=== PATIENT | female | born 1995 | race Caucasian/White ===

== ENCOUNTER 2018-08-24 12:52 | Emergency (ER) | payer OTHER ==
[2018-08-24] MEDS ORDERED: ONDANSETRON 4 MG/2 ML VIAL ONE (14:56)
[2018-08-24] MEDS ORDERED: MORPHINE 4 MG/ML SYR ONE (14:56)
[2018-08-24] MEDS ORDERED: NA CHLORIDE 0.9% 1,000 ML ONE (14:56)
[2018-08-24 16:20] LABS: Absolute Lymphocytes (CBC) 0.7 K/uL (0.7-4.9); Absolute Monocytes 0.2 K/uL (0.1-1.3); Absolute Neutrophil 2.9 K/uL (1.8-8.0); Basophils % 0.3 % (0-1.3); Eosinophils % 0.3 % (0-4.4); Hematocrit 42.2 % (36.0-45.0); Lymphocytes % 17.4 % (15.3-44.8); Monocytes % 5.8 % (3.3-12.3)
[2018-08-24 16:38] LABS: Bilirubin Direct 0.1 mg/dL (0-0.2); Bilirubin Total 0.5 mg/dL (0.2-1.0); Potassium 3.7 mmol/L (3.5-5.1); Protein, Total 7.3 g/dL (6.4-8.2)
[2018-08-24] MEDS ORDERED: DICYCLOMINE HCL 10 MG CAP ONE (16:42)
[2018-08-24 17:07] LABS: Urine Blood TRACE (NEG); Urine Glucose NEGATIVE (NEG); Urine Protein TRACE (NEG)
--- NOTE | 2018-08-24 17:38 | RAD REPORT ---
EXAM DESCRIPTION: CT - Abdomen Pelvis W Contrast - 08/24/2018 5:20 pm CLINICAL HISTORY: Abdominal pain, right lower quadrant pain COMPARISON: None. TECHNIQUE: Biphasic, helical CT imaging of the abdomen and pelvis was performed following 100 ml non -ionic IV contrast. No oral contrast administered. All CT scans are performed using dose optimization technique as appropriate and may include automated exposure control or mA/KV adjustment according to patient size. FINDINGS: No suspicious findings in the lung bases. The liver, spleen, and pancreas show no suspicious findings. Gallbladder and biliary tree are also wi thout suspicious finding. Symmetric renal function is seen with no hydronephrosis or suspicious renal mass. No pyelonephritis o r acute parenchymal process. No bladder abnormalities. No adrenal abnormalities. No gastric dilatation or gastric wall thickening. No dilated small bowel loops. There are several flu id filled nondilated small bowel loops in the pelvis. Morales are mildly prominent. The appendix is nor mal in diameter. The appendix is partially retrocecal and positioned closely to the posterior wall of the cecum. Patient has small mesenteric lymph nodes in the right lower quadrant and a few central me senteric lymph nodes. No colon dilatation or wall thickening. No acute colon process. Uterus and ovar ies show no suspicious findings. No free air, free fluid or inflammatory stranding. No hernia, mass or bulky lymphadenopathy. No suspicious bony findings. IMPRESSION: No appendicitis findings. Patient has findings consistent with a mild enteritis or mesen teric adenitis.
--- NOTE | 2018-08-24 17:54 | ER ---
Nurse's Notes [facility] Name: Sveta Wyatt Age: 22 yrs Sex: Female : 1995 Arrival Date: 08/24/2018 Time: 12:55 Bed 27 Private MD: Diagnosis: Vomiting;Diarrhea, unspecified;Unspecified abdominal pain Presentation: 08/24 13:23 Presenting complaint: Presenting complaint: Patient states: Sent from urgent care for sg rule out appendicitis, reports having RLQ abd pain for 2 days now, with nausea, denies vomiting diarrhea fever at this time, reports pain is better while laying down, worsened with sitting up and ambulating, pt mother reports family history of gall bladder problems, but no other GI history reported, pt denies Vaginal discharge, no urinary symptoms reported. 13:24 Transition of care: patient was not received from another setting of care. Onset of sg symptoms was August 24, 2018. Risk Assessment: Do you want to hurt yourself or someone else? Patient reports no desire to harm self or others. Initial Sepsis Screen: Does the patient meet any 2 criteria? No. Patient's initial sepsis screen is negative. Does the patient have a suspected source of infection? No. Patient's initial sepsis screen is negative. Care prior to arrival: None. 13:24 Method Of Arrival: Ambulatory sg 13:24 Acuity: ROGELIO 3 sg Triage Assessment: 13:26 General: Appears uncomfortable, ill, well groomed, well developed, well nourished, sg Behavior is calm, cooperative, appropriate for age. Pain: Complains of pain in right lower quadrant Quality of pain is described as aching, sharp. EENT: Oral mucosa is moist. GI: Abdomen is flat, non-distended, Abd is soft X 4 quads Abdomen is tender to palpation in right lower quadrant. Derm: Skin is pale. RN CHEMICAL DEPENDENCY: 13:22 LMP N/A - Depo-provera sg Historical: - Allergies: 13:22 Amoxicillin; sg - Home Meds: 13:22 None [Active]; sg - PMHx: 13:22 None; sg - PSHx: 13:22 None; sg - Immunization history:: Adult Immunizations up to date. - Social history:: Smoking status: Patient/guardian denies using tobacco. - Ebola Screening: : Patient negative for fever greater than or equal to 101.5 degrees Fahrenheit, and additional compatible Ebola Virus Disease symptoms Patient denies exposure to infectious person Patient denies travel to an Ebola-affected area in the 21 days before illness onset No symptoms or risks identified at this time. Screenin:18 Abuse screen: Denies threats or abuse. Denies injuries from another. Nutritional mg2 screening: No deficits noted. Tuberculosis screening: No symptoms or risk factors identified. Fall Risk IV access (20 points). Assessment: 15:17 General: Appears in no apparent distress. comfortable, Behavior is calm, cooperative. mg2 Pain: Complains of pain in abdomen Pain does not radiate. Pain currently is 8 out of 10 on a pain scale. Quality of pain is described as aching, Pain began gradually, 2-3 days ago. Is intermittent. Neuro: Level of Consciousness is awake, alert, obeys commands, Oriented to person, place, time, situation. Cardiovascular: Capillary refill < 3 seconds Patient's skin is warm and dry. Respiratory: Airway is patent Respiratory effort is even, unlabored, Respiratory pattern is regular, symmetrical. GI: Bowel sounds present X 4 quads. Reports diarrhea, nausea, vomiting. : No signs and/or symptoms were reported regarding the genitourinary system. EENT: No signs and/or symptoms were reported regarding the EENT system. Derm: Skin is intact, is healthy with good turgor, Skin is pink, warm \T\ dry. normal. Musculoskeletal: Circulation, motion, and sensation intact. Capillary refill < 3 seconds. 18:03 Reassessment: Patient states feeling better. mg2 Vital Signs: 13:22 BP 117 / 84; Pulse 98; Resp 17; Temp 98.0; Pulse Ox 100% on R/A; Weight 91.63 kg; sg Height 6 ft. (182.88 cm); Pain 4/10; 15:19 Pulse 82; Resp 18; Pulse Ox 99% on R/A; Pain 8/10; mg2 16:36 BP 120 / 78; Pulse 84; Resp 18; Pulse Ox 99% on R/A; mg2 17:44 BP 132 / 83; Pulse 80; Resp 18; Pulse Ox 100% on R/A; Pain 5/10; mg2 13:22 Body Mass Index 27.40 (91.63 kg, 182.88 cm) ED Course: 12:55 Patient arrived in ED. as 13:22 Arm band placed on. sg 13:26 Triage completed. sg 14:29 Leon Au PA is PHCP. m 14:29 Edilberto Perez MD is Attending Physician. jmm 14:42 Radiology exam delayed due to lab results not completed at this time. test jg6 not completed at this time. 14:48 Rodger Farfan, RN is Primary Nurse. mg2 15:18 No provider procedures requiring assistance completed. Inserted saline lock: 22 gauge mg2 in left wrist, using aseptic technique. 15:19 Patient has correct armband on for positive identification. Pulse ox on. NIBP on. mg2 15:30 Radiology exam delayed due to lab results not completed at this time. (BUN/Creatinine) jg6 test not completed at this time. 16:10 Radiology exam delayed due to lab results not completed at this time. (BUN/Creatinine). jg6 17:[address] via wheelchair. nj 17:08 CT Abd/Pelvis - W/Contrast In Process Unspecified. EDMS 18:03 IV discontinued, intact, bleeding controlled, No redness/swelling at site. Pressure mg2 dressing applied. Administered Medications: 15:08 Drug: NS 0.9% 1000 ml Route: IV; Rate: 1 bolus; Site: left hand; ca1 18:03 Follow up: Response: No adverse reaction; IV Status: Completed infusion mg2 15:08 Drug: morphine 2 mg Route: IVP; Site: left hand; ca1 18:03 Follow up: Response: No adverse reaction; Marked relief of symptoms mg2 15:10 Drug: Zofran 4 mg Route: IVP; Site: left hand; ca1 18:03 Follow up: Response: No adverse reaction; Marked relief of symptoms mg2 16:36 Drug: Bentyl 20 mg Route: PO; mg2 17:43 Follow up: Response: No adverse reaction; Marked relief of symptoms mg2 17:54 Drug: morphine 2 mg Route: IVP; Site: left wrist; mg2 18:02 Follow up: Response: No adverse reaction; Medication administered at discharge. mg2 Outcome: 17:54 Discharge ordered by . jmm 18:04 Discharged to home ambulatory, with family. mg2 18:04 Condition: stable 18:04 Discharge instructions given to patient, family, Instructed on discharge instructions, follow up and referral plans. medication usage, Demonstrated understanding of instructions, follow-up care, medications, Prescriptions given X 2. 18:08 Patient left the ED. mg2 Signatures: Dispatcher [employer] EDMarcello Ledesma RN RN Leon Awan PA PA jmm Martinez, Amelia as Jordan, Nathan nj Gardose, Michele, RN RN mg2 Aarti Dumont6 Dona Hassan RN RN ca1 Corrections: (The following items were deleted from the chart) 13:26 13:23 Presenting complaint: jermaine dean
--- NOTE | 2018-08-24 17:55 | EDPHYS ---
Physician Documentation [facility] Name: Sveta Wyatt Age: 22 yrs Sex: Female : 1995 Arrival Date: 08/24/2018 Time: 12:55 Bed 27 Private MD: ED Physician Edilberto Perez HPI: 08/24 14:39 This 22 yrs old Female presents to ER via Ambulatory with complaints of jmm Abdominal Pain, Vomiting/Diarrhea. 14:39 The patient presents with abdominal pain. Onset: The symptoms/episode began/occurred jmm gradually, 3 day(s) ago. The symptoms do not radiate. Associated signs and symptoms: Pertinent positives: nausea and vomiting, diarrhea. The symptoms are described as achy. This is a 22 year old female with no chronic medical conditions that presents to the ED with complaints of abdominal pain, vomiting, diarrhea beginning 3 days ago. Sent from urgent care due to concerns for appendicitis. . 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 - Social history:: Smoking status: Patient/guardian denies using tobacco. - Ebola Screening: : Patient negative for fever greater than or equal to 101.5 degrees Fahrenheit, and additional compatible Ebola Virus Disease symptoms Patient denies exposure to infectious person Patient denies travel to an Ebola-affected area in the 21 days before illness onset No symptoms or risks identified at this time. ROS: 14:39 Constitutional: Negative for fever, chills, and weight loss, Cardiovascular: Negative jmm for chest pain, palpitations, and edema, Respiratory: Negative for shortness of breath, cough, wheezing, and pleuritic chest pain. 14:39 Abdomen/GI: Positive for abdominal pain, nausea and vomiting, diarrhea. 14:39 All other systems are negative. Exam: 14:39 Constitutional: This is a well developed, well nourished patient who is awake, alert, jmm and in no acute distress. Head/Face: atraumatic. Eyes: EOMI, no conjunctival erythema appreciated ENT: Moist Mucus Membranes Neck: Trachea midline, Supple Chest/axilla: Normal chest wall appearance and motion. Cardiovascular: Regular rate and rhythm. No edema appreciated Respiratory: Normal respirations, no respiratory distress appreciated 14:39 Back: Normal ROM Skin: General appearance color normal MS/ Extremity: Moves all extremities, no obvious deformities appreciated, no edema noted to the lower extremities Neuro: Awake and alert, normal gait Psych: Behavior is normal, Mood is normal, Patient is cooperative and pleasant 14:39 Abdomen/GI: Inspection: abdomen appears normal, Bowel sounds: normal, Palpation: soft, mild abdominal tenderness, in the right lower quadrant and left lower quadrant. Vital Signs: 13:22 BP 117 / 84; Pulse 98; Resp 17; Temp 98.0; Pulse Ox 100% on R/A; Weight 91.63 kg; sg Height 6 ft. (182.88 cm); Pain 4/10; 15:19 Pulse 82; Resp 18; Pulse Ox 99% on R/A; Pain 8/10; mg2 16:36 BP 120 / 78; Pulse 84; Resp 18; Pulse Ox 99% on R/A; mg2 17:44 BP 132 / 83; Pulse 80; Resp 18; Pulse Ox 100% on R/A; Pain 5/10; mg2 13:22 Body Mass Index 27.40 (91.63 kg, 182.88 cm) sg MDM: 14:39 Patient medically screened. [facility] 17:52 Data reviewed: vital signs, nurses notes. Counseling: I had a detailed discussion with chen the patient and/or guardian regarding: the historical points, exam findings, and any diagnostic results supporting the discharge/admit diagnosis, lab results, radiology results, the need for outpatient follow up, to return to the emergency department if symptoms worsen or persist or if there are any questions or concerns that arise at home. ED course: CT negative. I discussed lab and ct results with patient and mother. Patient given early appendicitis return precautions. Patient understood and agrees with the plan of care. . 08/24 14:40 Order name: Basic Metabolic Panel; Complete Time: 16:52 [facility] 08/24 14:40 Order name: CBC with Diff; Complete Time: 16:24 [facility] 08/24 14:40 Order name: Creatinine for Radiology; Complete Time: 16:52 [facility] 08/24 14:40 Order name: Hepatic Function; Complete Time: 16:52 [facility] 08/24 14:40 Order name: Lipase; Complete Time: 16:52 [facility] 08/24 14:40 Order name: Test, Serum; Complete Time: 16:52 [facility] 08/24 14:40 Order name: CT Abd/Pelvis - W/Contrast; Complete Time: 17:48 [facility] 08/24 16:35 Order name: Urine Dipstick--Ancillary (enter results); Complete Time: 17:18 08/24 16:35 Order name: Urine --Ancillary (enter results); Complete Time: 17:18 08/24 14:40 Order name: IV Saline Lock; Complete Time: 15:15 [facility] 08/24 14:40 Order name: Labs collected and sent; Complete Time: 16:34 [facility] 08/24 14:40 Order name: Urine Dipstick-Ancillary (obtain specimen); Complete Time: 16:34 [facility] Administered Medications: 15:08 Drug: NS 0.9% 1000 ml Route: IV; Rate: 1 bolus; Site: left hand; ca1 18:03 Follow up: Response: No adverse reaction; IV Status: Completed infusion mg2 15:08 Drug: morphine 2 mg Route: IVP; Site: left hand; ca1 18:03 Follow up: Response: No adverse reaction; Marked relief of symptoms mg2 15:10 Drug: Zofran 4 mg Route: IVP; Site: left hand; ca1 18:03 Follow up: Response: No adverse reaction; Marked relief of symptoms mg2 16:36 Drug: Bentyl 20 mg Route: PO; mg2 17:43 Follow up: Response: No adverse reaction; Marked relief of symptoms mg2 17:54 Drug: morphine 2 mg Route: IVP; Site: left wrist; mg2 18:02 Follow up: Response: No adverse reaction; Medication administered at discharge. mg2 Disposition: 08/25 07:49 Co-signature as Attending Physician, Edilberto Perez MD I agree with the assessment and yogi plan of care. Disposition: 08/24/18 17:54 Discharged to Home. Impression: Vomiting, Diarrhea, unspecified, Unspecified abdominal pain. - Condition is Stable. - Discharge Instructions: Abdominal Pain, Adult, Food Choices to Help Relieve Diarrhea, Adult, Diarrhea, Adult, Nausea and Vomiting, Adult. - Prescriptions for Zofran ODT 4 mg Oral tablet,disintegrating - place 1 tablet by TRANSLINGUAL route every 4-6 hours; 20 tablet. Bentyl 20 mg Oral Tablet - take 2 tablet by ORAL route every 6 hours As needed; 40 tablet. - Medication Reconciliation Form, Thank You Letter, Antibiotic Education, Prescription Opioid Use, Work release form form. - Follow up: Private Physician; When: 2 - 3 days; Reason: Recheck today's complaints, Continuance of care, Re-evaluation by your physician. Signatures: Dispatcher [employer] EDMarcello Ledesma RN RN sg Anderson, Corey, MD MD cha Mickail, Joel, PA PA jmm Gardose, Michele, RN RN mg2 Dona Hassan RN RN ca1 Corrections: (The following items were deleted from the chart) 08/24 18:08 17:54 08/24/2018 17:54 Discharged to Home. Impression: Vomiting; Diarrhea, unspecified; mg2 Unspecified abdominal pain. Condition is Stable. Forms are Medication Reconciliation Form, Thank You Letter, Antibiotic Education, Prescription Opioid Use. Follow up: Private Physician; When: 2 - 3 days; Reason: Recheck today's complaints, Continuance of care, Re-evaluation by your physician. chen
[2018-08-24] MEDS ORDERED: MORPHINE 2 MG/ML SYR ONE (18:01)
== END 2018-08-24 18:08 | disposition home or self-care (01) ==
LOC: ER 12:52
DX: R11.10 Vomiting, unspecified (principal); R19.7 Diarrhea, unspecified; Z88.1 Allergy status to other antibiotic agents
CPT/HCPCS: 36415; 74177; 80048; 80076; 81003; 81025; 83690; 84703; 85025; J2270; J2405; J7030; Q9967

== ENCOUNTER 2021-12-03 19:00 | Emergency (ER) | payer BC, OTHER ==
--- OUTSIDE RECORDS SUMMARY | 2021-12-03 19:04 | XMS REPORT | Continuity of Care Document ---
:1995 Author Organization [facility] [place] t Address [facility] [address] [place] [address] Care Team Providers Name Role Phone Kenneth TYLER Primary Care Physician Unavailable ROBIN Attending Clinician Unavailable Nurse, Women's Health Attending Clinician Unavailable Robin ORTEGA Attending Clinician Souleymane BAXTER Attending Clinician Unavailable BETSY HALE Attending Clinician Unavailable Betsy Hale MD Attending Clinician Donnell PALM Attending Clinician Unavailable Kenneth TYLER Attending Clinician Unavailable Payers Payer Name Policy Type Policy Number Effective Date Expiration Date S [facility] [id number] 2018 00:00:00 Problems Condition Condition Condition Status Onset Resolution Last Treating Co mments Source Name Details Category Date Date Treatment Clinician Date Migraines Migraines Disease Active [facility] [place] [facility] Allergies, Adverse Reactions, Alerts Allergy Allergy Status Severity Reaction(s) Onset Inactive Treating Comm ents Source Name Type Date Date Clinician Amoxicil Propensi Active Hives 2016- Univer s kash ty to 03-04 ity of adverse 00:00: [place] reaction 00 Medical s Branch AMOXICIL DRUG Active Hives 2016-0 Univers KASH INGREDI 03-04 ity of 00:00: [place] 00 Medical Branch Social History Social Habit Start Date Stop Date Quantity Comments Source Exposure to Not sure [facility] of SARS-CoV-2 [place] [facility] (event) Branch History SDOH University o f Alcohol Frequency [place] [facility] History SDOH University o f Alcohol Std [place] [facility] Drinks Branch History SDOH University o f Alcohol Binge [place] [facility] Alcohol intake 2021-09-30 2021-09-30 Current drinker Unive rsity of 00:00:00 00:00:00 of alcohol [facility] [place] (finding) [place] Tobacco use and 2017-03-04 2017-03-04 Never used Universit y of exposure 00:00:00 00:00:00 [facility] Alcohol Comment 2017-03-04 2017-03-04 1-2 drinks Universit y of 00:00:00 00:00:00 weekly [facility] Sex Ass[birth year] Universit y of 00:00:00 00:00:00 [facility] Smoking Status Start Date Stop Date Source Never smoker [facility] Medications Ordered Filled Start Stop Current Ordering Indication Dosage Frequency Signature Comments Components Source Medication Medication Date Date Medication? Clinician (SIG) Name Name medroxyPROG 2021- No [id number] 150mg Univers ESTERone 09-30 ity of (DEPO-PROVE 14:15: 13:21 [place] RA) syringe 00 :00 Medical 150 mg Branch medroxyPROG 2021- No [id number] 150mg 150 mg, Univers ESTERone 09-30 Intramuscu ity of (DEPO-PROVE 14:15: 13:21 lar, ONCE, [place] RA) syringe 00 :00 1 dose, On Me dical 150 mg [facility] 09/30/21 at 0915, Routine medroxyPROG 2021- No [id number] 150mg Univers ESTERone 07-0118 ity of (DEPO-PROVE 15:30: 14:23 [place] RA) syringe 00 :00 Medical 150 mg Branch medroxyPROG 2021- No [id number] 150mg 150 mg, Univers ESTERone 07-01 Intramuscu ity of (DEPO-PROVE 15:30: 14:23 lar, ONCE, [place] RA) syringe 00 :00 1 dose, On Me dical 150 mg [facility] 07/01/21 at 0930, Routine medroxyprog Yes by [facility] esterone 7-07 Intramuscu [place]y [place] f acetate 09:16[place]. [place] (DEPO-PROVE 40 Medical RA IM) Branch medroxyprog Yes by [facility] esterone 7-07 Intramuscu [place] f acetate 09:16[place] (DEPO-PROVE 40 Medical RA IM) Branch medroxyprog 2020-0 Yes by [facility] esterone 7-07 Intramuscu [place] o f acetate 09:16[place] (DEPO-PROVE 40 Medical RA IM) Branch medroxyprog 2020-0 Yes by [facility] esterone 7-07 Intramuscu [place] o f acetate 09:16: [place] (DEPO-PROVE 40 Medical RA IM) Branch medroxyprog 2020-0 Yes by [facility] esterone 7-07 Intramuscu ity o f acetate 09:16: [place] (DEPO-PROVE 40 Medical RA IM) Branch sulfamethox 2020-0 Yes [id number] 1{tbl} Take 1 Univers azole-trime 7-07 tablet by ity of thoprim 00:00: mouth 2 [place] (BACTRIM 00 (two) Medical DS) 800-160 times Branch mg per daily. tablet sulfamethox 2020-0 Yes [id number] 1{tbl} Take 1 Univers azole-trime 7-07 tablet by ity of thoprim 00:00: mouth 2 [place] (BACTRIM 00 (two) Medical DS) 800-160 times Branch mg per daily. tablet sulfamethox 2020-0 Yes [id number] 1{tbl} Take 1 Univers azole-trime 7-07 tablet by ity of thoprim 00:00: mouth 2 [place] (BACTRIM 00 (two) Medical DS) 800-160 times Branch mg per daily. tablet sulfamethox 2020-0 Yes [id number] 1{tbl} Take 1 Univers azole-trime 7-07 tablet by ity of thoprim 00:00: mouth 2 [place] (BACTRIM 00 (two) Medical DS) 800-160 times Branch mg per daily. tablet topiramate 2020-0 Yes [id number] 25mg Take 1 U nivers 25 mg 5-20 tablet by ity of tablet 00:00: mouth at [place] [address] bedtime. Medical Branch topiramate 2020-0 Yes [id number] 25mg Take 1 U nivers 25 mg 5-20 tablet by ity of tablet 00:00: mouth at [place] 00 bedtime. Medical Branch topiramate 2020-0 Yes [id number] 25mg Take 1 U nivers 25 mg 5-20 tablet by ity of tablet 00:00: mouth at [place] 00 bedtime. Medical Branch topiramate 2020-0 Yes [id number] 25mg Take 1 U nivers 25 mg 5-20 tablet by ity of tablet 00:00: mouth at [place] 00 bedtime. Medical Branch topiramate 2019-0 Yes [id number] 25mg Take 1 U nivers 25 mg 5-20 tablet by ity of tablet 00:00: mouth at [place] 00 bedtime. Medical Branch rizatriptan 0 Yes [id number] Take 1 tab Univers 10 mg 2-24 po x 1 ity of disintegrat 00:00: [place] PRN [place] tablet 00 migraine Medic al headache, Branch you may repeat x 1 dose in 2 hours if needed rizatriptan Yes [id number] Take 1 tab Univers 10 mg 2-24 po x 1 ity of disintegrat 00:00: [place]N [place] tablet 00 migraine Medic al headache, Branch you may repeat x 1 dose in 2 hours if needed rizatriptan Yes [id number] Take 1 tab Univers 10 mg 2-24 po x 1 ity of [place]at 00:00: [place]N [place] tablet 00 migraine Medic al headache, Branch you may repeat x 1 dose in 2 hours if needed rizatriptan Yes [id number] Take 1 tab Univers 10 mg 2-24 po x 1 ity of disintegrat 00:00: [place]N [place] tablet 00 migraine Medic al headache, Branch you may repeat x 1 dose in 2 hours if needed rizatriptan Yes [id number] Take 1 tab Univers 10 mg 2-24 po x 1 ity of disintegrat 00:00: [place] tablet 00 migraine Medic al headache, Branch you may repeat x 1 dose in 2 hours if needed nitrofurant 2019- Yes [id number] 50mg Take 1 Univers oin 50 mg 2-09 capsule by ity of capsule 00:00: mouth 00 daily. Medical Branch nitrofurant 2019- Yes [id number] 50mg Take 1 Univers oin 50 mg 2-09 capsule by ity of capsule 00:00: mouth [place] 00 daily. Medical Branch nitrofurant 2019-1 Yes [id number] 50mg Take 1 Univers oin 50 mg 2-09 capsule by ity of capsule 00:00: mouth 00 daily. Medical Branch nitrofurant 2019-1 Yes [id number] 50mg Take 1 Univers oin 50 mg 2-09 capsule by ity of capsule 00:00: mouth 00 daily. Medical Branch Vital Signs Vital Name Observation Time Observation Value Comments Source Systolic blood 2021-09-30 13:08:00 115 mm[Hg] Univer sity of pressure [facility] [place] Branch Diastolic blood 2021-09-30 13:08:00 80 mm[Hg] Unive rsity of pressure [facility] Heart rate 2021-09-30 13:08:00 83 /min Universi ty of [facility] Body temperature 2021-09-30 13:08:00 37.06 [place] [facility] ersity of [facility] [place] Branch Respiratory rate 2021-09-30 13:08:00 18 /min Univ ersity of [facility] Body height 2021-09-30 13:08:00 188 cm Universi ty of [facility] [place] [facility] Body weight 2021-09-30 13:08:00 100.245 kg [facility] [place] [facility] BMI 2021-09-30 13:08:00 28.37 kg/m2 Universi ty of [facility] [place] [facility] Systolic blood 2021-07-01 14:23:00 127 mm[Hg] Univer sity of [facility] Branch Diastolic blood 2021-07-01 14:23:00 82 mm[Hg] Unive rsity of [facility] Heart rate 2021-07-01 14:23:00 93 /min Universi ty of [facility] [place] [facility] Body temperature 2021-07-01 14:23:00 37.11 [place] [facility] ersity of [facility] [place] [facility] Respiratory rate 2021-07-01 14:23:00 18 /min Univ ersity of [facility] [place] [facility] Body height 2021-07-01 14:23:00 188 cm [facility] [place] [facility] Body weight 2021-07-01 14:23:00 97.523 kg [facility] [place] [facility] BMI 2021-07-01 14:23:00 27.60 kg/m2 Universi ty of [facility] [place] [facility] Body temperature 2021-04-07 17:47:00 36.17 [place] Univ ersity of [facility] [place] [facility] Body height 2021-04-07 17:47:00 188 cm [facility] Body weight 2021-04-07 17:47:00 91.808 kg [facility] BMI 2021-04-07 17:47:00 25.99 kg/m2 [facility] Procedures Procedure Date / Time Performed Performing Clinician Devin e XR SHOULDER 2+ VW 2021-04-07 17:54:40 Mirella Hale [facility] Encounters Start End Encounter Admission Attending Care Care Encounter Source Date/Time Date/Time Type Type Clinicians Facility Department ID 2021-12-30 2021-12-30 Outpatient R [facility] [id number] Univers 08:00:00 08:00:00 [id number] [facility] 2021-11-25 2021-11-25 Outpatient R ROBIN [facility] [id number] Univers 09:30:00 09:30:00 CAROL [facility] 2021-11-25 2021-11-25 Outpatient R ROBIN [facility] [id number] Univers 09:30:00 09:30:00 CAROL [id number] [facility] 2021-09-30 2021-09-30 Outpatient R ROBIN [facility] [id number] Univers 08:00:00 08:20:44 CAROL [facility] 2021-09-30 2021-09-30 Nurse Nurse, [facility] [id number] Univers 08:00:00 08:20:44 Visit Carol Rockwell [id number] [facility] [id number] Gina CHAKRABORTYESSIO [id number] Mi dical [place] [id number] Branch BUILDING 2021-09-30 2021-09-30 Outpatient R [facility] [id number] Univers 08:00:00 08:00:[facility] [id number] [facility] 2021-08-11 2021-08-11 Outpatient R [facility] [id number] Univers 19:20:00 19:20:00 [id number] [facility] 2021-08-11 2021-08-11 [facility] [id number] Univers 19:20:00 18:55:16 MARICARMEN archuleta o f [facility] 2021-07-01 2021-07-01 Nurse Nurse, [facility] [id number] Univers 08:00:00 08:26:36 Visit Carol [place] [id number] ity [facility] [id number] [place] [id number] Mi dical NAL 134 [facility] 2021-07-01 2021-07-01 Outpatient R [facility] [id number] Univers 08:00:00 08:00:00 [id number] ity [place] [facility] 2021-07-01 2021-07-01 [facility] [id number] Univers 08:00:00 08:00:00 CAROL archuleta [place] [facility] 2021-04-28 2021-04-28 [facility] [id number] Univers 09:00:00 09:00:00 MIRELLA [id number] [facility] 2021-04-28 2021-04-28 [facility] [id number] Univers 09:00:00 09:00:00 MIRELLA ity [place] [facility] 2021-04-07 2021-04-07 [facility] [id number] Univers 12:50:00 23:59:00 Encounter Mirella SPECIALTY [id number] [facility] [id number] [phone] Mi dical VICTORY [id number] [facility] 2021-04-07 2021-04-07 Office [facility] [id number] Univers 12:37:33 12:52:33 Visit Mirella SPECIALTY [id number] ity of [place] [facility] [id number] C[place] [id number] Mi dical [address] 2021-04-07 2021-04-07 Outpatient R [facility] [id number] Univers 08:00:00 08:00:00 [id number] ity [place] [facility] 2021-04-07 2021-04-07 Outpatient R [facility] [id number] Univers 08:00:00 08:00:00 ity [place] [facility] 2021-01-13 2021-01-13 Outpatient R [facility] [id number] Univers 09:00:00 09:00:00 [id number] ity [place] [facility] 2021-01-13 2021-01-13 Outpatient R [facility] [id number] Univers 09:00:00 09:00:00 ity [place] [facility] 2020-11-29 2020-11-29 Outpatient R [facility] [id number] Univers 13:00:00 13:00:00 [id number] ity [place] [facility] 2020-11-29 2020-11-29 Outpatient R [facility] [id number] Univers 13:00:00 13:00:00 ity [place] [facility] 2020-10-21 2020-10-21 Outpatient R ROBIN [facility] [id number] Univers 09:30:00 09:30:00 [facility] [id number] [facility] 2020-10-21 2020-10-21 Outpatient R ROBIN [facility] [id number] Univers 09:30:00 09:30:00 CAROL [facility] 2020-10-18 2020-10-18 Outpatient R ROBIN [facility] [id number] Univers 10:00:00 10:00:00 CAROL [id number] ity [place] [facility] 2020-10-18 2020-10-18 Outpatient R ROBIN [facility] [id number] Univers 10:00:00 10:00:00 CAROL [facility] 2020-07-15 2020-07-15 Outpatient R [facility] [id number] Univers 08:00:00 08:00:00 [id number] [facility] 2020-07-15 2020-07-15 Outpatient R [facility] [id number] Univers 08:00:00 08:00:00 ity of [facility] 2020-04-16 2020-04-16 Outpatient R [facility] [id number] Univers 09:00:00 09:00:00 ity of [facility] 2020-04-16 2020-04-16 Outpatient R [facility] [id number] Univers 09:00:00 09:00:00 ity of [facility] 2020-01-17 2020-01-17 Outpatient R [facility] [id number] Univers 10:00:00 10:00:00 ity [place] [facility] 2020-01-17 2020-01-17 Outpatient R [facility] [id number] Univers 10:00:00 10:00:00 ity [place] [facility] 2019-12-19 2019-12-19 Outpatient R JUAN FR[facility]ISC[facility]OGER [facility] [id number] Univers 14:30:00 14:30:00 [facility] 2019-12-19 2019-12-19 Outpatient R [facility]UAN [facility] [id number] Univers 14:30:00 14:30:00 [facility] 2019-12-19 2019-12-19 Outpatient R JUAN [facility] [id number] Univers 09:00:00 09:00:00 [facility] 2019-10-24 2019-10-24 Outpatient R NAYELI [facility] [id number] Univers 13:00:00 13:00:00 WONDIFUL [id number] ity o f [facility] 2019-10-24 2019-10-24 Outpatient R NAYELI [facility] [id number] Univers 13:00:00 13:00:00 WONDIFUL ity o f [facility] 2019-10-19 2019-10-19 Outpatient R ROBIN [facility] [id number] Univers 09:00:00 09:00:00 CAROL ity [place] [facility] 2019-08-07 2019-08-07 Outpatient R NAYELI [facility] [id number] Univers 09:00:00 09:00:00 WONDIFUL ity o f [facility] Results This patient has no known results.
[2021-12-03] MEDS ORDERED: LIDOCAINE 1% MPF 5 ML VIAL ONE (19:21)
[2021-12-03] MEDS ORDERED: TETANUS & DIPHTHERIA TOX,ADULT 0.5 ML VIAL ONE (19:54)
--- NOTE | 2021-12-03 20:15 | ER ---
Nurse's Notes [facility] Name: Sveta Wyatt Age: 26 yrs Sex: Female : 1995 Arrival Date: 12/03/2021 Time: 19:01 Bed 12 Private MD: Diagnosis: Laceration without foreign body of left ring finger without damage to nail Presentation: 12/03 19:20 Chief complaint: Patient states: she cut her left ring finger washing dishes prior to bb arrival. Coronavirus screen: At this time, the client does not indicate any symptoms associated with coronavirus-19. Ebola Screen: No symptoms or risks identified at this time. Complicating Factors: There are no complicating factors for this patient. Initial Sepsis Screen: Does the patient meet any 2 criteria? No. Patient's initial sepsis screen is negative. Does the patient have a suspected source of infection? No. Patient's initial sepsis screen is negative. Risk Assessment: Do you want to hurt yourself or someone else? Patient reports no desire to harm self or others. Onset of symptoms was December 03, 2021. 19:20 Method Of Arrival: Ambulatory 19:20 Acuity: ROGELIO 3 bb Triage Assessment: 19:21 Injury Description: Laceration sustained to left hand is not bleeding. bb EKG/ECG TECHNICIAN: 19:21 LMP N/A - control method bb Historical: - Allergies: 19:21 Amoxicillin; bb - PMHx: 19:21 None; bb - Immunization history:: Last tetanus immunization: < 10 years ago. - Social history:: Smoking status: Patient denies any tobacco usage or history of. Screenin:23 Abuse screen: Denies threats or abuse. Nutritional screening: No deficits noted. bb Tuberculosis screening: No symptoms or risk factors identified. Fall Risk None identified. Assessment: 19:23 General: Appears in no apparent distress. Behavior is calm, cooperative. Pain: Denies bb pain. Neuro: Level of Consciousness is awake, alert, obeys commands, Oriented to person, place, time, situation. Cardiovascular: Capillary refill < 3 seconds Patient's skin is warm and dry. Respiratory: Respiratory effort is even, unlabored. GI: No signs and/or symptoms were reported involving the gastrointestinal system. Derm: Skin is pink, warm \T\ dry. Wound noted left hand Wound is not bleeding. Musculoskeletal: Circulation, motion, and sensation intact. 20:36 Reassessment: Patient is alert, oriented x 3, equal unlabored respirations, skin bb warm/dry/pink. splint applied by Lupillo Benitez LIGHTING SPECIALIST suture line intact pt verbalized understanding of and agrees to plan of care discharge instructions given pt ambulated with steady gait to exit accompanied by family. Vital Signs: 19:20 BP 143 / 96; Pulse 95; Resp 16 S; Temp 98.3(O); Pulse Ox 98% on R/A; Weight 95.25 kg bb (R); Height 6 ft. 2 in. (187.96 cm) (R); Pain 0/10; 19:20 Body Mass Index 26.96 (95.25 kg, 187.96 cm) bb ED Course: 19:01 Patient arrived in ED. as 19:20 Emily Herrera, RN is Primary Nurse. bb 19:21 Triage completed. bb 19:21 Arm band placed on Patient placed in an exam room, on a stretcher, on pulse oximetry. bb Family accompanied patient. 19:23 Patient has correct armband on for positive identification. Bed in low position. Call bb light in reach. Side rails up X 1. Adult w/ patient. Pulse ox on. NIBP on. 19:25 Lupillo Benitez NP is PHCP. pm1 19:25 Edilberto Perez MD is Attending Physician. pm1 20:37 Assist provider with laceration repair on dorsal aspect of proximal phalanx of left bb ring finger that was 2.5 cm. or less using sutures. Set up tray. Performed by Lupillo Benitez LIGHTING SPECIALIST Dressed with 4X4s, splint Patient tolerated well. 20:40 Patient did not have IV access during this emergency room visit. bb Administered Medications: 19:51 Drug: Tetanus Toxoid,Adsorbed 0.5 ml {Care Management Associate: [employer]. Exp: 09/06/2023. Lot bb #: [id number]. } Route: IM; Site: right deltoid; 20:18 Follow up: Response: No adverse reaction bb 19:53 Drug: Lidocaine (1 %) 5 ml {Note: by Lupillo Benitez LIGHTING SPECIALIST to affected area.} Volume: 5 bb ml; Route: Infiltration; 20:18 Follow up: Response: No adverse reaction bb Medication: 19:52 Vaccine Information Statement (VIS) provided today. Questions and/or concerns bb addressed. VIS edition date: January 17, 2021. Outcome: 20:14 Discharge ordered by . pm1 20:37 Discharged to home ambulatory, with family. chaim 20:37 Condition: stable 20:37 Discharge instructions given to patient, Instructed on discharge instructions, follow up and referral plans. medication usage, Demonstrated understanding of instructions, follow-up care, medications, wound care, Prescriptions given X 1. 20:40 Patient left the ED. bb Signatures: Johanny Hart Brenda, RN RN bb Lupillo Benitez, LIGHTING SPECIALIST LIGHTING SPECIALIST pm1
--- NOTE | 2021-12-03 20:15 | EDPHYS ---
Physician Documentation [facility] Name: Sveta Wyatt Age: 26 yrs Sex: Female : 1995 Arrival Date: 12/03/2021 Time: 19:01 Bed 12 Private MD: ED Physician Edilberto Perez HPI: 12/03 19:30 This 26 yrs old Female presents to ER via Ambulatory with complaints of Laceration To pm1 Hand. 19:30 The patient has a laceration related to: washing dishes and then dropped a glass. pm1 Patient tried to catch the glass and cut her left ring finger. The laceration(s) is(are) located on the left hand. Onset: The symptoms/episode began/occurred just prior to arrival. Associated signs and symptoms: Pertinent negatives: deformity, dizziness, heavy bleeding, numbness distal to injury, suspected foreign body. The patient has not experienced similar symptoms in the past. The patient has not recently seen a physician. 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 - Social history:: Smoking status: Patient denies any tobacco usage or history of. ROS: 19:30 Constitutional: Negative for fever, chills, and weight loss. pm1 19:30 Cardiovascular: Negative for chest pain, palpitations, and edema, Respiratory: Negative for shortness of breath, cough, wheezing, and pleuritic chest pain. 19:30 Neuro: Negative for headache, weakness, numbness, tingling, and seizure. 19:30 MS/extremity: Positive for laceration, of the dorsal aspect of proximal phalanx of left ring finger, Negative for decreased range of motion, deformity. 19:30 Skin: Positive for laceration(s), of the dorsal aspect of proximal phalanx of left ring finger. 19:30 All other systems are negative. Exam: 19:30 Constitutional: This is a well developed, well nourished patient who is awake, alert, pm1 and in no acute distress. Head/Face: Normocephalic, atraumatic. 19:30 Cardiovascular: Exam negative for acute changes, Rate: normal, Rhythm: regular, Pulses: no pulse deficits are appreciated. 19:30 Respiratory: Exam negative for acute changes, respiratory distress, shortness of breath. 19:30 Skin: Appearance: normal except for affected area, injury, laceration(s), that can be described as clean, no foreign body, irregular, with mild bleeding, dorsal aspect of left proximal phalanx of left ring finger. 19:30 Neuro: Exam negative for acute changes, Orientation: is normal, Motor: moves all fours, Sensation: is normal, no obvious gross deficits. Vital Signs: 19:20 BP 143 / 96; Pulse 95; Resp 16 S; Temp 98.3(O); Pulse Ox 98% on R/A; Weight 95.25 kg bb (R); Height 6 ft. 2 in. (187.96 cm) (R); Pain 0/10; 19:20 Body Mass Index 26.96 (95.25 kg, 187.96 cm) bb Laceration: 20:12 Wound Repair of 2.5cm ( 1.0in ) subcutaneous laceration to dorsal aspect of proximal pm1 phalanx of left ring finger. Irregularly shaped.. Distal neuro/vascular/tendon intact. Anesthesia: Digital block administered with 2 mls of 1% lidocaine. Wound prep: Extensive cleansing with betadine with hibiclenz by me, Wound irrigation with saline by me, Wound explored extensively, Copious irrigation. Skin closed with 6 5-0 Prolene using simple sutures and sterile technique. Dressed with Neosporin, 4x4's, finger splint. Patient tolerated well. MDM: 19:30 Patient medically screened. [facility] 19:30 Refusal of service: The patient/guardian displays adequate decision making capability pm1 and despite a detailed discussion of alternatives, benefits, risks, and consequences refuses: all X-rays, I removed 2 small pieces of glass from the patient's hand surrounding the laceration and told the patient that I wanted to get a x-ray. The patient refused the x-ray even though I told her that I was performing it to look for foreign bodies. 20:12 Data reviewed: vital signs. Data interpreted: Pulse oximetry: on room air is 98 %. pm1 Interpretation: normal. Counseling: I had a detailed discussion with the patient and/or guardian regarding: the historical points, exam findings, and any diagnostic results supporting the discharge/admit diagnosis, the need for outpatient follow up, suture removal in 10-14 days, to return to the emergency department if symptoms worsen or persist or if there are any questions or concerns that arise at home. 12/03 19:33 Order name: Dressing - Wound; Complete Time: 19:42 pm1 12/03 19:33 Order name: Gloves, Sterile; Complete Time: 19:42 pm1 12/03 19:33 Order name: Prolene, Sutures; Complete Time: 19:42 pm1 12/03 19:33 Order name: Setup Suture Tray; Complete Time: 19:42 pm1 Administered Medications: 19:51 Drug: Tetanus Toxoid,Adsorbed 0.5 ml {Flat Machine Cutter: [employer]. Exp: 09/06/2023. Lot bb #: [id number]. } Route: IM; Site: right deltoid; 20:18 Follow up: Response: No adverse reaction bb 19:53 Drug: Lidocaine (1 %) 5 ml {Note: by Lupillo Benitez CARPET JOURNEYMAN to affected area.} Volume: 5 bb ml; Route: Infiltration; 20:18 Follow up: Response: No adverse reaction bb Disposition Summary: 12/03/21 20:14 Discharge Ordered Location: Home pm1 Problem: new pm1 Symptoms: have improved pm1 Condition: Stable pm1 Diagnosis - Laceration without foreign body of left ring finger without damage to nail pm1 Followup: pm1 - With: Emergency Department - When: As needed - Reason: Worsening of condition Followup: pm1 - With: Private Physician - When: 10 - 14 days - Reason: Recheck today's complaints, Continuance of care, Re-evaluation by your physician Discharge Instructions: - Discharge Summary Sheet pm1 - Laceration Care, Adult pm1 Forms: - Medication Reconciliation Form pm1 - Thank You Letter pm1 - Antibiotic Education pm1 - Prescription Opioid Use pm1 Prescriptions: - Bactrim DS 800-160 mg Oral Tablet - take 1 tablet by ORAL route every 12 hours for 10 days; 20 tablet; Refills: 0, pm1 Product Selection Permitted Signatures: Edilberto Perez MD MD cha Ballard, Brenda, RN RN Lupillo Bo, MANDI CARPET JOURNEYMAN pm1
[2021-12-03 21:10] VITALS: BP 143/96; TEMP 98.3; O2SAT 98
== END 2021-12-03 20:40 | disposition home or self-care (01) ==
LOC: ER 19:00
PROC: 0JQK0ZZ Repair Left Hand Subcutaneous Tissue and Fascia, Open Approach (ICD-10-PCS; principal; 2021-12-03)
DX: S61.215A Laceration without foreign body of left ring finger without damage to nail, initial encounter (principal); Z23 Encounter for immunization; Z88.1 Allergy status to other antibiotic agents
CPT/HCPCS: 90471; 90714; 99284